=== PATIENT | female | born 1935 | race Caucasian/White ===

== ENCOUNTER 2021-05-30 10:47 | Inpatient (IN) | payer OTHER ==
[2021-05-30] MEDS ORDERED: PANTOPRAZOLE SODIUM 40 MG/100 ML BAG IVPB ONE (10:50)
[2021-05-30] MEDS ORDERED: PANTOPRAZOLE SODIUM 40 MG VIAL ONE (10:51)
[2021-05-30] MEDS ORDERED: PANTOPRAZOLE SODIUM 40 MG VIAL IVPUSH ONE (11:32)
[2021-05-30 11:41] LABS: BASO % 0.4 % (0-2.0); EOS % 0.1 % (0-4.5); HEMATOCRIT 17.3 % (32.4-45.2); MCH 33.4 pg (25.7-33.7); MCHC 34.6 g/dl (32.0-36.0); MEAN CELL VOLUME 96.7 fl (80-96); MEAN PLT VOLUME 8.4 fl (7.5-11.1); MONO % 3.3 % (3.8-10.2); NEUT % 85.2 % (42.8-82.8); PLATELET COUNT 223 10^3/uL (134-434); RBC 1.79 M/mm3 (3.60-5.2); RDW 13.3 % (11.6-15.6); WHITE BLOOD COUNT 8.8 K/mm3 (4.0-10.0)
[2021-05-30] MEDS ORDERED: FUROSEMIDE 40 MG/4 ML INJECTABLE VIAL IVPUSH ONE (11:49)
[2021-05-30 11:50] LABS: INR 1.17 (0.83-1.09); PROTHROMBIN TIME (PATIENT) 14.3 SEC (9.7-13.0)
[2021-05-30 11:52] LABS: ACTIVATED PTT 28.2 SECONDS (25.2-36.5)
[2021-05-30] MEDS: PANTOPRAZOLE SODIUM 80 MG in SODIUM CHLORIDE 100 ML IVPB SCH ×2 (12:01→21:03)
[2021-05-30 12:02] LABS: ALBUMIN 1.8 g/dl (3.4-5.0); BLOOD UREA NITROGEN 52.1 mg/dL (7-18); CALCIUM 7.1 mg/dL (8.5-10.1); MAGNESIUM 1.9 mg/dL (1.8-2.4)
[2021-05-30 12:03] LABS: LACTIC ACID 3.1 mmol/L (0.4-2.0)
[2021-05-30 12:05] LABS: CREATININE 0.5 mg/dL (0.55-1.3); PHOSPHOROUS 2.8 mg/dL (2.5-4.9)
[2021-05-30 12:07] LABS: BILIRUBIN,TOTAL 0.2 mg/dL (0.2-1); TOT PROT 3.9 g/dl (6.4-8.2)
[2021-05-30 12:49] LABS: EPI CELLS 25 /uL (0-25.1); HYALINE CASTS 16 /uL (0-3.1); PH,URINE 5.5 (5.0-8.0); URINE APPEARANCE CLOUDY; URINE BACTERIA >9,000 /uL (0-1359); URINE BILIRUBIN NEGATIVE (NEGATIVE); URINE COLOR YELLOW; URINE GLUCOSE (UA) NEGATIVE (NEGATIVE); URINE KETONE NEGATIVE (NEGATIVE); URINE LEUK ESTERASE TRACE (NEGATIVE); URINE NITRITE NEGATIVE (NEGATIVE); URINE PROTEIN TRACE (NEGATIVE); URINE RBC 5 /uL (0-23.9); URINE WBC 46 /uL (0-25.8)
[2021-05-30] MEDS: QUEtiapine FUMARATE 200 MG TABLET PO SCH (21:03)
[2021-05-30 21:48] LABS: HEMATOCRIT 33.6 % (32.4-45.2); HEMOGLOBIN 11.3 GM/dL (10.7-15.3); MCH 30.6 pg (25.7-33.7); MCHC 33.5 g/dl (32.0-36.0); MEAN CELL VOLUME 91.3 fl (80-96); MEAN PLT VOLUME 7.9 fl (7.5-11.1); PLATELET COUNT 170 10^3/uL (134-434); RBC 3.68 M/mm3 (3.60-5.2); RDW 16.3 % (11.6-15.6); WHITE BLOOD COUNT 12.7 K/mm3 (4.0-10.0)
[2021-05-30] MEDS ORDERED: SODIUM CHLORIDE 250 ML IV STA (22:51)
[2021-05-31] MEDS ORDERED: SODIUM CHLORIDE 500 ML IV STA ×2 (00:04→02:06)
[2021-05-31] MEDS ORDERED: SODIUM CHLORIDE 1,000 ML IV SCH (01:00)
[2021-05-31 03:02] LABS: HEMATOCRIT 26.2 % (32.4-45.2); HEMOGLOBIN 8.9 GM/dL (10.7-15.3); MCH 30.3 pg (25.7-33.7); MEAN PLT VOLUME 7.9 fl (7.5-11.1); PLATELET COUNT 107 10^3/uL (134-434); RBC 2.95 M/mm3 (3.60-5.2); RDW 16.2 % (11.6-15.6); WHITE BLOOD COUNT 6.9 K/mm3 (4.0-10.0)
[2021-05-31] MEDS: LEVOTHYROXINE SODIUM 100 MCG VIAL IVPUSH SCH (06:13)
[2021-05-31] MEDS: PANTOPRAZOLE SODIUM 80 MG in SODIUM CHLORIDE 100 ML IVPB SCH (07:46)
[2021-05-31] MEDS ORDERED: cefTRIAXone SODIUM 1 GM VIAL ONE (09:10)
[2021-05-31] MEDS ORDERED: DEXTROSE 5%-WATER - 50 ML IVPB ONE (09:10)
[2021-05-31] MEDS ORDERED: CEFTRIAXONE 1 GM in DEXTROSE 5%-WATER - 50 ML IVPB SCH (10:00)
[2021-05-31 11:10] LABS: HEMATOCRIT 28.1 % (32.4-45.2); HEMOGLOBIN 9.8 GM/dL (10.7-15.3); MCH 31.4 pg (25.7-33.7); MCHC 34.8 g/dl (32.0-36.0); MEAN CELL VOLUME 90.2 fl (80-96); MEAN PLT VOLUME 7.9 fl (7.5-11.1); PLATELET COUNT 116 10^3/uL (134-434); RBC 3.12 M/mm3 (3.60-5.2); WHITE BLOOD COUNT 6.8 K/mm3 (4.0-10.0)
[2021-05-31 11:37] LABS: ALBUMIN 2.1 g/dl (3.4-5.0); BLOOD UREA NITROGEN 41.5 mg/dL (7-18); CALCIUM 7.6 mg/dL (8.5-10.1)
[2021-05-31 11:41] LABS: CREATININE 0.4 mg/dL (0.55-1.3)
[2021-05-31 11:42] LABS: BILIRUBIN,TOTAL 0.4 mg/dL (0.2-1); TOT PROT 4.3 g/dl (6.4-8.2)
[2021-05-31] MEDS: POTASSIUM CHLORIDE ORAL LIQUID 20 MEQ/15 ML PO ONE ×2 (12:52→17:59)
[2021-05-31] MEDS ORDERED: POTASSIUM CHLORIDE TABS 20 MEQ TABLET.ER (FP) PO ONE (15:13)
[2021-05-31] MEDS ORDERED: PT OWN MED DRAWER 7, Y5N ONE (21:11)
[2021-05-31] MEDS: QUEtiapine FUMARATE 200 MG TABLET PO SCH (21:14)
[2021-05-31] MEDS: PANTOPRAZOLE SODIUM 40 MG VIAL IVPUSH SCH (21:14)
[2021-06-01 02:05] LABS: BASO % 0.5 % (0-2.0); EOS % 0.3 % (0-4.5); HEMOGLOBIN 10.6 GM/dL (10.7-15.3); LYMPH % 12.3 % (8-40); MCH 31.3 pg (25.7-33.7); MCHC 34.3 g/dl (32.0-36.0); MEAN CELL VOLUME 91.3 fl (80-96); MEAN PLT VOLUME 7.8 fl (7.5-11.1); MONO % 2.7 % (3.8-10.2); NEUT % 84.2 % (42.8-82.8); PLATELET COUNT 141 10^3/uL (134-434); RBC 3.39 M/mm3 (3.60-5.2); RDW 17.3 % (11.6-15.6); WHITE BLOOD COUNT 8.7 K/mm3 (4.0-10.0)
[2021-06-01 02:45] LABS: ALBUMIN 2.4 g/dl (3.4-5.0); BLOOD UREA NITROGEN 35.7 mg/dL (7-18); CALCIUM 7.8 mg/dL (8.5-10.1)
[2021-06-01 02:49] LABS: CREATININE 0.5 mg/dL (0.55-1.3)
[2021-06-01 02:50] LABS: BILIRUBIN,TOTAL 0.3 mg/dL (0.2-1); TOT PROT 4.8 g/dl (6.4-8.2)
[2021-06-01] MEDS: LEVOTHYROXINE SODIUM 100 MCG VIAL IVPUSH SCH (06:44)
[2021-06-01] MEDS ORDERED: DEXTROSE 5%-WATER - 50 ML IVPB ONE (08:58)
[2021-06-01] MEDS ORDERED: cefTRIAXone SODIUM 1 GM VIAL ONE (08:58)
[2021-06-01] MEDS: PANTOPRAZOLE SODIUM 40 MG VIAL IVPUSH SCH (09:00)
[2021-06-01] MEDS: CEFTRIAXONE 1 GM in DEXTROSE 5%-WATER - 50 ML IVPB SCH (09:15)
[2021-06-01] MEDS: PANTOPRAZOLE 40 MG TABLET PO SCH ×2 (09:18→22:46)
[2021-06-01] MEDS: POTASSIUM CHLORIDE TABS 20 MEQ TABLET.ER (FP) PO ONE (09:35)
[2021-06-01] MEDS ORDERED: PANTOPRAZOLE SODIUM 40 MG VIAL IVPUSH SCH (10:00)
[2021-06-01 13:03] LABS: HEMATOCRIT 32.4 % (32.4-45.2); HEMOGLOBIN 11.2 GM/dL (10.7-15.3); MCH 31.2 pg (25.7-33.7); MCHC 34.5 g/dl (32.0-36.0); MEAN CELL VOLUME 90.3 fl (80-96); MEAN PLT VOLUME 7.8 fl (7.5-11.1); PLATELET COUNT 180 10^3/uL (134-434); RBC 3.58 M/mm3 (3.60-5.2); RDW 16.8 % (11.6-15.6); WHITE BLOOD COUNT 9.7 K/mm3 (4.0-10.0)
[2021-06-01] MEDS ORDERED: POTASSIUM CHLORIDE ORAL LIQUID 20 MEQ/15 ML PO ONE (13:30)
[2021-06-01] MEDS: POTASSIUM CHLORIDE ORAL LIQUID 20 MEQ/15 ML PO ONE (13:35)
[2021-06-01] MEDS ORDERED: PT OWN MED DRAWER 7, Y5N ONE ×2 (21:31→23:58)
[2021-06-01] MEDS ORDERED: QUEtiapine FUMARATE 200 MG TABLET PO SCH (22:00)
[2021-06-01] MEDS ORDERED: MELATONIN 5 MG TABLETS PO SCH (22:00)
[2021-06-01] MEDS ORDERED: clonazePAM 0.25 MG ODT TABLETS SL SCH (22:00)
[2021-06-02] MEDS ORDERED: PT OWN MED DRAWER 7, Y5N ONE (01:10)
[2021-06-02] MEDS ORDERED: LEVOTHYROXINE NA 125 MCG TABLET (FP) PO SCH (07:00)
[2021-06-02] MEDS ORDERED: LEVOTHYROXINE SODIUM 100 MCG VIAL IVPUSH SCH (07:00)
[2021-06-02] MEDS: POTASSIUM CHLORIDE TABS 20 MEQ TABLET.ER (FP) PO ONE (07:25)
[2021-06-02] MEDS: PANTOPRAZOLE 40 MG TABLET PO SCH ×3 (07:25→12:34)
[2021-06-02] MEDS ORDERED: cefTRIAXone SODIUM 1 GM VIAL ONE (10:19)
[2021-06-02] MEDS ORDERED: DEXTROSE 5%-WATER - 50 ML IVPB ONE (10:20)
[2021-06-02] MEDS: CEFTRIAXONE 1 GM in DEXTROSE 5%-WATER - 50 ML IVPB SCH (10:32)
[2021-06-02 12:17] LABS: CALCIUM 7.5 mg/dL (8.5-10.1)
[2021-06-02 12:18] LABS: ALBUMIN 1.9 g/dl (3.4-5.0); BLOOD UREA NITROGEN 24.3 mg/dL (7-18)
[2021-06-02 12:21] LABS: CREATININE 0.5 mg/dL (0.55-1.3)
[2021-06-02 12:23] LABS: BILIRUBIN,TOTAL 0.2 mg/dL (0.2-1); TOT PROT 4.1 g/dl (6.4-8.2)
[2021-06-02] MEDS ORDERED: POTASSIUM CHLORIDE TABS 20 MEQ TABLET.ER (FP) PO ONE (12:44)
[2021-06-02 14:33] VITALS: BP 98/53; PULSE 80; TEMP 97
[2021-06-02] MEDS ORDERED: ACETAMINOPHEN 500 MG TABLET (FP) PO ONE (17:15)
[2021-06-02] MEDS ORDERED: NITROFURANTOIN MACROCRYSTAL 50 MG CAPSULE (FP) PO SCH (18:00)
[2021-06-02 22:11] VITALS: BMI 20.8
== END 2021-06-02 21:21 | DRG 377 ==
LOC: JER 10:47 → JERBED 12:57 → JICU 15:10 → J6S 06-01 04:38
PROVIDERS: ADMIT Family Medicine; ATTEND Family Medicine
PROC: 30233N1 Transfusion of Nonautologous Red Blood Cells into Peripheral Vein, Percutaneous Approach (ICD-10-PCS; principal; 2021-05-30)
DX: K92.2 Gastrointestinal hemorrhage, unspecified (principal); L89.153 Pressure ulcer of sacral region, stage 3; L97.518 Non-pressure chronic ulcer of other part of right foot with other specified severity; N39.0 Urinary tract infection, site not specified; E87.2 Acidosis; R00.0 Tachycardia, unspecified; I95.9 Hypotension, unspecified; D50.0 Iron deficiency anemia secondary to blood loss (chronic); K21.9 Gastro-esophageal reflux disease without esophagitis; I10 Essential (primary) hypertension; F31.9 Bipolar disorder, unspecified; F03.90 Unspecified dementia, unspecified severity, without behavioral disturbance, psychotic disturbance, mood disturbance, and anxiety; D64.9 Anemia, unspecified; B96.20 Unspecified Escherichia coli [E. coli] as the cause of diseases classified elsewhere; Z79.82 Long term (current) use of aspirin; Z66 Do not resuscitate
CPT/HCPCS: 36415; 36430; 71045-TC-FY; 80053; 81003; 82272; 82550; 83605; 83735; 84100; 84443; 84484; 85025; 85027; 85610; 85730; 86850; 86900; 86901; 86922; 87086; 87186; 93005; 93010; 99285-25; C9803; P9051; P9058; U0003; U0005

== ENCOUNTER 2021-06-26 07:35 | Inpatient (IN) | payer OTHER ==
[2021-06-26] MEDS ORDERED: SODIUM CHLORIDE 0.9% 500 ML INFUS.BAG IV ONE ×2 (07:56→09:33)
[2021-06-26] MEDS ORDERED: SODIUM CHLORIDE 1,000 ML IV STA (08:09)
[2021-06-26] MEDS ORDERED: VANCOMYCIN 1,000 MG in DEXTROSE 5%-WATER - 250 ML IVPB ONE (08:10)
[2021-06-26] MEDS ORDERED: PIPERACILLIN/TAZOB 4.5 GM 4.5 GM in DEXTROSE 5%-WATER - 100 ML IVPB ONE (08:10)
[2021-06-26] MEDS ORDERED: PIPERACILLIN/TAZOB 4.5 GM 4.5 GM/100 ML BAG IVPB ONE (08:21)
[2021-06-26] MEDS ORDERED: VANCOMYCIN 1 GRAM (PRE-DOCKED) 1,000 MG/250 ML BAG IVPB ONE (08:22)
[2021-06-26] MEDS ORDERED: PANTOPRAZOLE SODIUM 40 MG VIAL IVPUSH ONE (08:27)
[2021-06-26 08:38] LABS: BASO % 0.1 % (0-2.0); EOS % 0.2 % (0-4.5); HEMATOCRIT 19.9 % (32.4-45.2); MCH 30.7 pg (25.7-33.7); MCHC 33.1 g/dl (32.0-36.0); MEAN CELL VOLUME 92.8 fl (80-96); MEAN PLT VOLUME 8.2 fl (7.5-11.1); NEUT % 89.7 % (42.8-82.8); PLATELET COUNT 123 10^3/uL (134-434); RBC 2.15 M/mm3 (3.60-5.2); RDW 18.8 % (11.6-15.6); WHITE BLOOD COUNT 11.2 K/mm3 (4.0-10.0)
[2021-06-26 08:39] LABS: HEMOGLOBIN 6.6 GM/dL (10.7-15.3)
[2021-06-26 08:53] LABS: CALCIUM 7.8 mg/dL (8.5-10.1)
[2021-06-26 08:54] LABS: ALBUMIN 1.7 g/dl (3.4-5.0); BLOOD UREA NITROGEN 44.9 mg/dL (7-18)
[2021-06-26] MEDS ORDERED: PANTOPRAZOLE SODIUM 40 MG VIAL ONE (08:54)
[2021-06-26 08:57] LABS: CREATININE 0.7 mg/dL (0.55-1.3)
[2021-06-26 09:03] LABS: BILIRUBIN,TOTAL 0.4 mg/dL (0.2-1); INR 0.95 (0.83-1.09); PROTHROMBIN TIME (PATIENT) 11.5 SEC (9.7-13.0)
[2021-06-26 09:05] LABS: ACTIVATED PTT 34.9 SECONDS (25.2-36.5)
[2021-06-26] MEDS ORDERED: QUEtiapine FUMARATE 100 MG TABLET (FP) PO ONE (13:14)
[2021-06-26] MEDS ORDERED: QUEtiapine FUMARATE 100 MG TABLET (FP) ONE (13:22)
[2021-06-26] MEDS ORDERED: clonazePAM 0.5 MG ODT TABLETS SL PRN (13:41)
[2021-06-26] MEDS ORDERED: ACETAMINOPHEN 1000 MG/100 ML VIAL (NON FORMULARY) IVPB PRN (13:41)
[2021-06-26] MEDS ORDERED: clonazePAM 0.5 MG TABLET PO PRN (13:46)
[2021-06-26] MEDS ORDERED: morphine CARPU-JECT 4 MG/1 ML DISP.SYRIN IVPUSH ONE (15:14)
[2021-06-26] MEDS ORDERED: MORPHINE SULFATE 2 MG/ML VIAL ONE (15:14)
[2021-06-26] MEDS ORDERED: LORazepam 2 MG/ML SDV VIAL IVPUSH PRN (16:54)
[2021-06-26] MEDS: SODIUM CHLORIDE 1,000 ML IV SCH (17:48)
[2021-06-26] MEDS: LACTULOSE 20 GM/30 ML UDC (FOR ORAL USE ONLY) PO SCH (21:20)
[2021-06-26] MEDS: PANTOPRAZOLE SODIUM 40 MG VIAL IVPUSH SCH (21:40)
[2021-06-26] MEDS ORDERED: QUEtiapine FUMARATE 200 MG TABLET PO SCH (22:00)
[2021-06-27] MEDS: SODIUM CHLORIDE 1,000 ML IV SCH (05:45)
[2021-06-27] MEDS: LEVOTHYROXINE NA 125 MCG TABLET (FP) PO SCH (06:01)
[2021-06-27] MEDS: LACTULOSE 20 GM/30 ML UDC (FOR ORAL USE ONLY) PO SCH ×2 (11:11→23:27)
[2021-06-27 12:13] LABS: HEMATOCRIT 31.2 % (32.4-45.2); HEMOGLOBIN 10.6 GM/dL (10.7-15.3); MCH 29.8 pg (25.7-33.7); MCHC 33.8 g/dl (32.0-36.0); MEAN CELL VOLUME 88.2 fl (80-96); MEAN PLT VOLUME 8.2 fl (7.5-11.1); PLATELET COUNT 98 10^3/uL (134-434); RBC 3.54 M/mm3 (3.60-5.2); RDW 18.4 % (11.6-15.6); WHITE BLOOD COUNT 12.6 K/mm3 (4.0-10.0)
[2021-06-27] MEDS: PANTOPRAZOLE SODIUM 40 MG VIAL IVPUSH SCH ×2 (12:44→23:27)
[2021-06-27 12:53] LABS: ALBUMIN 1.5 g/dl (3.4-5.0); ALK PHOS 90 U/L (45-117); ANION GAP 8 MMOL/L (8-16); BILIRUBIN,TOTAL 0.8 mg/dL (0.2-1); BLOOD UREA NITROGEN 36.5 mg/dL (7-18); CALCIUM 6.9 mg/dL (8.5-10.1); CHLORIDE 118 mmol/L (98-107); CO2 20 mmol/L (21-32); CREATININE 0.6 mg/dL (0.55-1.3); GLUCOSE,RANDOM 40 mg/dL (74-106); SGOT/AST 27 U/L (15-37); SGPT/ALT 18 U/L (13-61); SODIUM 147 mmol/L (136-145); TOT PROT 4.6 g/dl (6.4-8.2)
[2021-06-27 15:49] LABS: IRON SERUM 44 ug/dL (50-175); TOTAL IRON BINDING CAPACITY 147 ug/dL (250-450)
[2021-06-27] MEDS: D5-LR+20 MEQ KCL - 20 MEQ/1,000 ML INFUS.BAG IV SCH (17:28)
[2021-06-27] MEDS ORDERED: DEXTROSE 50%-WATER - 25 GM/50 ML VIAL IVPUSH ONE (17:56)
[2021-06-27] MEDS ORDERED: DEXTROSE 50%-WATER 25 GM/50 ML DISP.SYRIN ONE (18:26)
[2021-06-28] MEDS: D5-LR+20 MEQ KCL - 20 MEQ/1,000 ML INFUS.BAG IV SCH ×2 (05:01→22:13)
[2021-06-28] MEDS: LEVOTHYROXINE NA 125 MCG TABLET (FP) PO SCH (06:50)
[2021-06-28] MEDS: PANTOPRAZOLE SODIUM 40 MG VIAL IVPUSH SCH ×2 (11:16→22:24)
[2021-06-28] MEDS: LACTULOSE 20 GM/30 ML UDC (FOR ORAL USE ONLY) PO SCH ×2 (11:16→22:24)
[2021-06-28] MEDS: PIPERACILLIN/TAZOB 3.375 GM 3.375 GM in DEXTROSE 5%-WATER - 50 ML IVPB SCH ×2 (16:04→17:05)
[2021-06-28] MEDS ORDERED: ACETAMINOPHEN 1000 MG/100 ML VIAL (NON FORMULARY) IVPB ONE (17:35)
[2021-06-28] MEDS ORDERED: ACETAMINOPHEN 325 MG TABLET (FP) PO PRN (23:30)
[2021-06-29] MEDS ORDERED: PIPERACILLIN/TAZOBACTAM 3.375 GM VIAL IVPB ONE ×2 (01:50→09:23)
[2021-06-29] MEDS ORDERED: DEXTROSE 5%-WATER - 50 ML IVPB ONE ×2 (01:50→09:23)
[2021-06-29] MEDS: PIPERACILLIN/TAZOB 3.375 GM 3.375 GM in DEXTROSE 5%-WATER - 50 ML IVPB SCH ×2 (01:55→09:46)
[2021-06-29] MEDS: LEVOTHYROXINE NA 125 MCG TABLET (FP) PO SCH (06:47)
[2021-06-29] MEDS ORDERED: D5-LR+20 MEQ KCL - 20 MEQ/1,000 ML INFUS.BAG IV SCH (07:20)
[2021-06-29] MEDS: LACTULOSE 20 GM/30 ML UDC (FOR ORAL USE ONLY) PO SCH ×2 (09:46→09:56)
[2021-06-29] MEDS: PANTOPRAZOLE SODIUM 40 MG VIAL IVPUSH SCH ×2 (09:46→21:59)
[2021-06-29 10:20] LABS: HEMATOCRIT 32.5 % (32.4-45.2); HEMOGLOBIN 11.1 GM/dL (10.7-15.3); MCH 29.8 pg (25.7-33.7); MCHC 34.1 g/dl (32.0-36.0); MEAN CELL VOLUME 87.3 fl (80-96); MEAN PLT VOLUME 7.8 fl (7.5-11.1); PLATELET COUNT 113 10^3/uL (134-434); RBC 3.72 M/mm3 (3.60-5.2); RDW 18.8 % (11.6-15.6); WHITE BLOOD COUNT 15.1 K/mm3 (4.0-10.0)
[2021-06-29 10:46] LABS: CHLORIDE 116 mmol/L (98-107); SODIUM 150 mmol/L (136-145)
[2021-06-29 10:49] LABS: ANION GAP 10 MMOL/L (8-16); BLOOD UREA NITROGEN 36.3 mg/dL (7-18); CO2 23 mmol/L (21-32)
[2021-06-29 10:52] LABS: CREATININE 0.8 mg/dL (0.55-1.3)
[2021-06-29 11:01] LABS: GLUCOSE,RANDOM 44 mg/dL (74-106)
[2021-06-29] MEDS ORDERED: LORazepam 2 MG/ML SDV VIAL IVPUSH PRN ×2 (16:10→16:41)
[2021-06-29] MEDS ORDERED: ACETAMINOPHEN 1000 MG/100 ML VIAL (NON FORMULARY) IVPB PRN (16:10)
[2021-06-29] MEDS ORDERED: clonazePAM 0.5 MG TABLET PO PRN (16:10)
[2021-06-29] MEDS ORDERED: PCA PUMP NR ONE (17:35)
[2021-06-29] MEDS: MORPHINE SULFATE/0.9% NACL/PF 100 MG/100 ML BAG IVPB SCH (17:44)
[2021-06-29] MEDS: SCOPOLAMINE HYDROBROMIDE 1 PATCH PATCH.TD72 TD SCH (17:45)
[2021-06-30] MEDS: PANTOPRAZOLE 40 MG TABLET PO SCH ×2 (10:55→22:08)
[2021-07-01] MEDS: PANTOPRAZOLE 40 MG TABLET PO SCH ×2 (09:15→21:39)
[2021-07-01] MEDS ORDERED: PCA PUMP NR ONE (16:05)
[2021-07-01] MEDS: MORPHINE SULFATE/0.9% NACL/PF 100 MG/100 ML BAG IVPB SCH (16:13)
[2021-07-02] MEDS: PANTOPRAZOLE 40 MG TABLET PO SCH ×2 (09:56→21:49)
[2021-07-02 11:56] VITALS: BMI 28.4
[2021-07-02] MEDS: SCOPOLAMINE HYDROBROMIDE 1 PATCH PATCH.TD72 TD SCH (16:53)
[2021-07-03] MEDS: PANTOPRAZOLE 40 MG TABLET PO SCH ×2 (10:46→21:44)
[2021-07-03] MEDS ORDERED: PCA PUMP NR ONE (17:46)
[2021-07-03] MEDS: MORPHINE SULFATE/0.9% NACL/PF 100 MG/100 ML BAG IVPB SCH (17:49)
[2021-07-04 06:43] VITALS: TEMP 96.4
[2021-07-04] MEDS: PANTOPRAZOLE 40 MG TABLET PO SCH (10:00)
[2021-07-04 18:36] VITALS: BP 101/51; PULSE 59
[2021-07-04] MEDS ORDERED: PCA PUMP NR ONE (20:11)
== END 2021-07-04 20:23 | disposition short-term general hospital (02) | DRG 377 ==
LOC: JER 07:35 → JERBED 08:11 → J6S 15:55
PROVIDERS: ADMIT Family Medicine; ATTEND Family Medicine
PROC: 30233N1 Transfusion of Nonautologous Red Blood Cells into Peripheral Vein, Percutaneous Approach (ICD-10-PCS; principal; 2021-06-26)
DX: K92.2 Gastrointestinal hemorrhage, unspecified (principal); L89.153 Pressure ulcer of sacral region, stage 3; R57.1 Hypovolemic shock; L97.518 Non-pressure chronic ulcer of other part of right foot with other specified severity; F20.0 Paranoid schizophrenia; R18.8 Other ascites; I50.30 Unspecified diastolic (congestive) heart failure; D64.9 Anemia, unspecified; I95.9 Hypotension, unspecified; I10 Essential (primary) hypertension; K21.9 Gastro-esophageal reflux disease without esophagitis; F31.9 Bipolar disorder, unspecified; D69.6 Thrombocytopenia, unspecified; K74.60 Unspecified cirrhosis of liver; E03.9 Hypothyroidism, unspecified; L98.429 Non-pressure chronic ulcer of back with unspecified severity; E16.2 Hypoglycemia, unspecified; D72.829 Elevated white blood cell count, unspecified; E88.09 Other disorders of plasma-protein metabolism, not elsewhere classified; F03.90 Unspecified dementia, unspecified severity, without behavioral disturbance, psychotic disturbance, mood disturbance, and anxiety; K59.09 Other constipation; K86.89 Other specified diseases of pancreas; G47.00 Insomnia, unspecified; I11.0 Hypertensive heart disease with heart failure; F39 Unspecified mood [affective] disorder; R68.0 Hypothermia, not associated with low environmental temperature
CPT/HCPCS: 36415; 36430; 36511; 71045-TC-FY; 80048; 80053; 82272; 82550; 82962; 83540; 83550; 83605; 83735; 84484; 85025; 85027; 85610; 85730; 86850; 86900; 86901; 86922; 87040; 93005; 93010; 99291; C9803; J0131; P9038; P9058; U0003; U0005